=== PATIENT | male | born 1970 | race Asian ===

== ENCOUNTER 2017-01-02 03:04 | Emergency (ER) | payer BC ==
[~2017-01-02] VITALS: Ht 172.7 cm; Wt 68.0 kg
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
--- NOTE | 2017-01-02 03:25 | NUR ---
PATIENT TAKEN TO CT SCAN.
[2017-01-02] MEDS ORDERED: HYDROCODONE/APAP 5/325MG 1 EACH TABLET ONE (04:03)
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
[2017-01-02] MEDS ORDERED: AMOX/CLAVULANATE 875 MG TABLET PO ONE (04:30)
[2017-01-02] MEDS ORDERED: HYDROCODONE/APAP 5/325MG 1 EACH TABLET PO ONE (04:30)
--- NOTE | 2017-01-02 04:33 | NUR ---
Dr Lopez at bedside talking to patient.
[2017-01-02] MEDS ORDERED: AMOX/CLAVULANATE 875 MG TABLET ONE (04:34)
--- NOTE | 2017-01-02 04:41 | NUR ---
Patient discharged in stable condition. Written and verbal after care instructions given. Patient verbalizes understanding of instruction. Patient is ambulatory with steady gait, Instructed not to drive, accompanied by significant other. no further complaints.
[2017-01-02 04:43] VITALS: BP 145/74
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
== END 2017-01-02 04:43 | disposition home or self-care (01) ==
LOC: ER 03:12
DX: S02.31XA Fracture of orbital floor, right side, initial encounter for closed fracture (principal); S02.2XXA Fracture of nasal bones, initial encounter for closed fracture; W22.8XXA Striking against or struck by other objects, initial encounter; Y93.89 Activity, other specified; Y92.89 Other specified places as the place of occurrence of the external cause; Y99.8 Other external cause status
CPT/HCPCS: 70486; 99284; A4606; Z7610